=== PATIENT | female | born 1990 | race Caucasian/White ===

== ENCOUNTER 2017-04-18 04:20 | Inpatient (IN) | payer BC ==
[2017-04-18] MEDS ORDERED: TYLENOL EXTRA STRENGTH 500 MG PO PRN ×2 (04:28→08:26)
[2017-04-18] MEDS ORDERED: XYLOCAINE 1% HCL 20 ML MDV IJ PRN (04:28)
[2017-04-18] MEDS ORDERED: Zofran 4 MG/2 ML VIAL IV PRN (04:28)
[2017-04-18] MEDS ORDERED: Lactated Ringers 1,000 ML IV SCH (04:30)
[2017-04-18] MEDS ORDERED: PITOCIN 30 UNITS/ LR 500 ML 500 ML IV SCH (04:30)
[2017-04-18] MEDS ORDERED: OMNIPEN 2 GM / NACL 100ML 100 ML IV ONE (04:37)
[2017-04-18 05:04] LABS: Amphetamine,Urine NEG. (NEGATIVE); Barbiturate,Urine NEG. (NEGATIVE); Benzodiazepine,Urine NEG. (NEGATIVE); Cocaine,Urine NEG. (NEGATIVE); Methadone,Urine NEG. (NEGATIVE); Opiate,Urine NEG. (NEGATIVE); PCP,Urine NEG. (NEGATIVE); THC,Urine NEG. (NEGATIVE)
[2017-04-18 05:27] LABS: BASOPHIL % 0.1 % (0.0-0.4); Basophil (Absolute #) 0.01 (0-0.4); Eosinophil % 0.4 % (0.00-5.0); Eosinophil (Absolute #) 0.06 (0-0.5); Granulocyte Absolute (ANC) 10.57 (1.4-6.9); Granulocytes % 77.3 % (36.0-66.0); Hematocrit 42.6 % (35-47); Hemoglobin 14.5 gm/dl (12.0-16.0); Lymphocyte (Absolute #) 2.12 (1.0-4.6); Lymphocytes % 15.5 % (24.0-44.0); Mean Cell Volume 95.7 fl (78-100); Mean Corpuscular Hemoglobin 32.6 pg (26-32); Mean Platelet Volume 11.1 fl (6-9.5); Monocyte (Absolute #) 0.92 (0.0-1.3); Monocytes % 6.7 % (0.0-12.0); Platelet Count 206 K/mm3 (150-450); Red Blood Count 4.45 M/mm3 (4.1-5.4); Red Cell Distribution Width 14.9 % (11.5-14.0); White Blood Count 13.7 K/mm3 (4.0-10.5)
[2017-04-18] MEDS ORDERED: STADOL 2 MG ONE (05:28)
[2017-04-18] MEDS ORDERED: STADOL 2 MG IV ONE (05:29)
[2017-04-18] MEDS ORDERED: Lactated Ringers 1,000 ML IV ONE (06:22)
[2017-04-18] MEDS ORDERED: CORTISONE 1% CREAM TP PRN (08:26)
[2017-04-18] MEDS ORDERED: MOTRIN 400 MG PO PRN (08:26)
[2017-04-18] MEDS ORDERED: LANSINOH 40 GM TOP PRN (08:26)
[2017-04-18] MEDS ORDERED: Dulcolax 10 MG SUPP PR PRN (08:26)
[2017-04-18] MEDS ORDERED: Anucort-HC SUPPOSITORY PR PRN (08:26)
[2017-04-18] MEDS ORDERED: Mylicon 80MG PO PRN (08:26)
[2017-04-18] MEDS ORDERED: NORCO 5/325 MG PO PRN (08:26)
[2017-04-18] MEDS ORDERED: OMNIPEN 1GM / NaCl 100ML 100 ML IV SCH (08:38)
[2017-04-18] MEDS ORDERED: Dermoplast Spray TP PRN (09:00)
[2017-04-18] MEDS: Colace 100 MG PO SCH ×2 (09:29→21:35)
[2017-04-18] MEDS: FERREX 150 PO SCH (09:29)
[2017-04-19 07:00] LABS: BASOPHIL % 0.2 % (0.0-0.4); Basophil (Absolute #) 0.02 (0-0.4); Eosinophil % 1.3 % (0.00-5.0); Eosinophil (Absolute #) 0.13 (0-0.5); Granulocyte Absolute (ANC) 7.37 (1.4-6.9); Granulocytes % 71.1 % (36.0-66.0); Hematocrit 34.8 % (35-47); Hemoglobin 11.5 gm/dl (12.0-16.0); Lymphocyte (Absolute #) 2.18 (1.0-4.6); Mean Cell Volume 99.1 fl (78-100); Mean Platelet Volume 11.5 fl (6-9.5); Monocyte (Absolute #) 0.66 (0.0-1.3); Monocytes % 6.4 % (0.0-12.0); Platelet Count 173 K/mm3 (150-450); Red Blood Count 3.51 M/mm3 (4.1-5.4); Red Cell Distribution Width 15.1 % (11.5-14.0); White Blood Count 10.4 K/mm3 (4.0-10.5)
[2017-04-19 07:10] LABS: Mean Corpuscular Hemoglobin 32.7 pg (26-32)
[2017-04-19] MEDS: FERREX 150 PO SCH ×2 (09:49→10:04)
[2017-04-19] MEDS: Colace 100 MG PO SCH ×2 (10:06→21:25)
[2017-04-20 08:18] VITALS: BP 122/76; PULSE 71
--- NOTE | 2017-04-20 10:12 | PCM.DS ---
Discharge Summary Date of Admission: 04/18/17 04:20 Admitting Physician: SOY SIMONS Primary Care Provider: SOY SIMONS Allergies Allergies No Known Drug Allergies Allergy (Verified 04/18/17 09:17) Hospital Summary - Hospital Course Hospital Course: Pt of Dr. Simons, at term came in and delivered viable baby girl precipitously but without complication. She has had very little pain and in fact took motrin x 1 and no other pain meds during her stay. Her bleeding is minimal and she is ready to d/c home. - Vitals & Intake/Output Vital Signs: Vital Signs Temperature 97.5 F 04/20/17 08:00 Pulse Rate 71 04/20/17 08:00 Respiratory Rate 16 04/20/17 08:00 Blood Pressure 122/76 04/20/17 08:00 O2 Sat by Pulse Oximetry Intake & Output: Intake & Output 04/17/17 04/18/17 04/19/17 04/20/17 11:59 11:59 11:59 11:59 Intake Total 100 1570 1850 Balance 100 1570 1850 Weight 92.533 kg - Lab Result Diagrams: 04/19/17 05:15 Discharge Exam General Appearance: no apparent distress, alert Neurologic Exam: oriented x 3, cooperative Skin Exam: normal color, warm, dry, No rash Neck Exam: normal inspection, non-tender, No lymphadenopathy Respiratory Exam: normal breath sounds, lungs clear, No crackles/rales, No rhonchi, No wheezing Cardiovascular Exam: regular rate/rhythm, normal heart sounds, No murmur Gastrointestinal/Abdomen Exam: soft, other (fundus firm under umbilicus) Extremity Exam: normal inspection, No pedal edema, No swelling Final Diagnosis/Problem List - Final Discharge Diagnosis/Problem (1) Vaginal delivery Current Visit: Yes Status: Acute Assessment & Plan: Doing great, PPD #2, home today on motrin OTC prn. (2) Anemia Current Visit: Yes Status: Acute Assessment & Plan: Hgb 11.5, continue , no need for supplementation. - Discharge Disposition: Home, Self-Care Condition: Good Prescriptions: No Action No Reportable Medications [No Reported Medications] Follow up with: SOY SIMONS MD [Primary Care Provider] - 1 Week Forms: OB Discharge Instructions
== END 2017-04-20 11:05 | disposition home or self-care (01) | DRG 775 ==
LOC: OB 04:20 → OBSVTOIN 04:20
PROVIDERS: ADMIT Family Medicine; ATTEND Family Medicine
PROC: 10E0XZZ Delivery of Products of Conception, External Approach (ICD-10-PCS; principal; 2017-04-18)
DX: O80 Encounter for full-term uncomplicated delivery (principal); Z3A.40 40 weeks gestation of pregnancy; Z37.0 Single live birth; D64.9 Anemia, unspecified
CPT/HCPCS: 36415; 80307; 85025; G0378; J0290; J0595; J2590; A9270-GY

== ENCOUNTER 2020-12-06 03:08 | Emergency (ER) | payer BC ==
[2020-12-06 03:48] VITALS: O2SAT 99
--- NOTE | 2020-12-06 04:41 | ERPHSYRPT ---
- History of Present Illness Time Seen by Provider: 12/06/20 03:50 Source: patient Exam Limitations: no limitations Patient Subjective Stated Complaint: pt states she was stung by something on her lt index finger and has been having sharp shooting pain since Triage Nursing Assessment: pt alert and oriented, answers questions approp. pt ambulatory with steady gait noted. respirations nonlabored. skin warm and dry. redness and mild swelling noted to 43th digit lt hand. cap refill wnl. radial pulse wnl. Physician History: Patient is a 30-year-old female presents to our ED with complaints of pain to the left ring finger. Patient states she was stung or bitten by an insect at approximately 845 this evening. Since then patient has been experiencing a shooting pain up her finger. During my evaluation patient states that her pain spontaneously resolved. Patient had been sitting in the treatment room with a cold pack. Patient currently has no significant discomfort. This was patient's only complaint. The involved finger is neurovascular intact distally. There is slight redness to the area however no stinger is observed. Symptoms are mild in intensity. Patient voices no other complaints concerns at this time. Timing/Duration: today Severity: mild Associated Symptoms: denies symptoms Allergies/Adverse Reactions: No Known Drug Allergies Allergy (Verified 12/06/20 03:48) Home Medications: No Reportable Medications [No Reported Medications] 04/18/17 [History] Hx Tetanus, Diphtheria Vaccination/Date Given: Yes (2014) Hx Influenza Vaccination/Date Given: No Hx Pneumococcal Vaccination/Date Given: No Immunizations Up to Date: Yes Travel Risk - International Travel Have you traveled outside of the country in past 3 weeks: No - Coronavirus Screening Are you exhibiting any of the following symptoms?: No Close contact with a COVID-19 positive Pt in past 14-21 Days: No - Vaccine Status Have you recieved a Covid-19 vaccination: No - Review of Systems Constitutional: No Symptoms, No Fever, No Chills Eyes: No Symptoms Ears, Nose, & Throat: No Symptoms Respiratory: No Symptoms, No Cough, No Dyspnea Cardiac: No Symptoms, No Chest Pain, No Edema, No Syncope Abdominal/Gastrointestinal: No Symptoms, No Abdominal Pain, No Nausea, No Vomiting, No Diarrhea Genitourinary Symptoms: No Symptoms, No Dysuria Musculoskeletal: No Symptoms, No Back Pain, No Neck Pain Skin: No Symptoms, No Rash Neurological: No Symptoms, No Dizziness, No Focal Weakness, No Sensory Changes Psychological: No Symptoms Endocrine: No Symptoms Hematologic/Lymphatic: No Symptoms Immunological/Allergic: No Symptoms All Other Systems: Reviewed and Negative - Past Medical History Pertinent Past Medical History: No Neurological History: No Pertinent History ENT History: No Pertinent History Cardiac History: No Pertinent History Respiratory History: No Pertinent History Endocrine Medical History: No Pertinent History Musculoskeletal History: No Pertinent History GI Medical History: No Pertinent History History: No Pertinent History Psycho-Social History: No Pertinent History Female Reproductive Disorders: No Pertinent History - Past Surgical History Past Surgical History: No Neuro Surgical History: No Pertinent History Cardiac: No Pertinent History Respiratory: No Pertinent History Gastrointestinal: No Pertinent History Genitourinary: No Pertinent History Musculoskeletal: No Pertinent History Female Surgical History: No Pertinent History - Social History Smoking Status: Never smoker Exposure to second hand smoke: No Drug Use: none Patient Lives Alone: No - Female History Hx Last Menstrual Period: current Hx Now: No - Nursing Vital Signs Nursing Vital Signs: Initial Vital Signs Temperature 97.7 F 12/06/20 03:35 Pulse Rate 79 12/06/20 03:35 Respiratory Rate 16 12/06/20 03:35 Blood Pressure 147/89 12/06/20 03:35 O2 Sat by Pulse Oximetry 99 12/06/20 03:35 Pain Scale Pain Intensity 5 - Physical Exam General Appearance: no apparent distress, alert Eye Exam: PERRL/EOMI, eyes nml inspection Ears, Nose, Throat Exam: normal ENT inspection, TMs normal, pharynx normal, moist mucous membranes Neck Exam: normal inspection, non-tender, supple, full range of motion Respiratory Exam: normal breath sounds, lungs clear, airway intact, No respiratory distress Cardiovascular Exam: regular rate/rhythm, normal heart sounds, normal peripheral pulses Gastrointestinal/Abdomen Exam: soft, normal bowel sounds, No tenderness, No mass Back Exam: normal inspection, normal range of motion, No CVA tenderness, No vertebral tenderness Extremity Exam: normal inspection, normal range of motion, pelvis stable, other (The proximal phalanx of the left ringfinger. Finger and extremity neurovascular intact distally. Compartments are soft. Cap refill less than 2 seconds.), No swelling (No retained stinger. No cellulitis. No lymphangitis. No open or draining lesions.) Neurologic Exam: alert, oriented x 3, cooperative, normal mood/affect, nml cerebellar function, nml station & gait, sensation nml, No motor deficits Skin Exam: normal color, warm, dry, No rash Lymphatic Exam: No adenopathy SpO2 Interpretation: normal SpO2: 99 O2 Delivery: Room Air - Course Nursing assessment & vital signs reviewed: Yes - Progress Progress: improved Progress Note: While in our ED patient's pain resolved. Patient has minimal discomfort at this time. She declined pain medication. Patient states she is ready for discharge. The finger is neurovascular intact distally. The site of the insect sting/bite appears unremarkable. Will discharge at this time. Patient agrees to follow-up with her primary care doctor within 48 hours for reevaluation. 12/06/20 04:51 Counseled pt/family regarding: diagnosis, need for follow-up - Departure Departure Disposition: Home Clinical Impression: Insect sting, Finger pain, left Condition: Stable Critical Care Time: No Referrals: SOY SIMONS MD [Primary Care Provider] - Instructions: Insect Bites and Stings (DC) Additional Instructions: Discharge/Care Plan ROSEMARY FOWLER was seen on 12/06/20 in the Emergency Room. The patient was counseled regarding Diagnosis,Lab results, Imaging studies, need for follow up and when to return to the Emergency Room. Prescriptions given: Discharge Note I have spoken with the patient and/or caregivers. I have explained the patient's condition, diagnosis and treatment plan based on the information available to me at this time. I have answered the patient's and/or caregiver's questions and addressed any concerns. The patient and/or caregivers have as good understanding of the patient's diagnosis, condition and treatment plan as can be expected at this point. The vital signs have been stable. The patient's condition is stable and appropriate for discharge from the emergency department. The patient will pursue further outpatient evaluation with the primary care physician or other designated or consulting physician as outlined in the discharge instructions. The patient and/or caregivers are agreeable to this plan of care and follow-up instructions have been explained in detail. The patient and/or caregivers have received these instruction. The patient/and or caregivers are aware that any significant change in condition or worsening of symptoms should prompt an immediate return to this or the closest emergency department or call 911.
[2020-12-06 04:47] VITALS: BP 129/91; PULSE 87
== END 2020-12-06 04:52 | disposition home or self-care (01) ==
LOC: ED 03:08
DX: T63.481A Toxic effect of venom of other arthropod, accidental (unintentional), initial encounter (principal); M79.645 Pain in left finger(s); M79.89 Other specified soft tissue disorders
CPT/HCPCS: 99283

== ENCOUNTER 2025-02-28 14:27 | Emergency (ER) | payer BC ==
[2025-02-28 14:48] VITALS: RESP 18; TEMP 97
[2025-02-28] MEDS ORDERED: Cyclobenzaprine 10 MG ONE (15:09)
[2025-02-28] MEDS ORDERED: PERCOCET TABLET 5/325MG ONE (15:09)
[2025-02-28] MEDS: PERCOCET TABLET 5/325MG PO STA (15:10)
[2025-02-28] MEDS: Cyclobenzaprine 10 MG PO ONE (15:10)
--- NOTE | 2025-02-28 15:39 | ERPHSYRPT ---
- History of Present Illness Time Seen by Provider: 02/28/25 14:53 Source: patient Exam Limitations: no limitations Patient Subjective Stated Complaint: Pt states "I was up on a 6 foot tall ladder and on the second to top rung and the ladder pushed away from me and I fell hitting the ladder and concrete." Triage Nursing Assessment: Pt presented alert and oriented x 3, skin pwd. Pt ambulates with a slow gait, physical assessment revealed right lateral back abrasion/bruising and tenderness, right shoulder lower than left, right wrist tenderness and painful to move, no other injuries or pain noted. no LOC, no blood thinner use. Physician History: 34-year-old female presents to the emergency status post fall off a ladder patient is complaining right shoulder pain right elbow pain right arm pain and right rib pain now in ED for further eval denies taking any medications prior to arrival Occurred: just prior to arrival Reason for Fall: lost balance, tripped, fell from height Injuries/Pain Location: upper extremity Loss of Consciousness: no loss of consciousness Quality: aching Severity of Pain-Max: mild Severity of Pain-Current: mild Modifying Factors: Improves With: nothing Allergies/Adverse Reactions: No Known Drug Allergies Allergy (Verified 12/06/20 03:48) Hx Tetanus, Diphtheria Vaccination/Date Given: No Hx Influenza Vaccination/Date Given: No Hx Pneumococcal Vaccination/Date Given: No Travel Risk - International Travel Have you traveled outside of the country in past 3 weeks: No - Emerging Infectious Disease Are you exhibiting symptoms associated with any current EIDs: No - Review of Systems Constitutional: No Fever, No Chills Eyes: No Symptoms Ears, Nose, & Throat: No Symptoms Respiratory: No Cough, No Dyspnea Cardiac: No Chest Pain, No Edema, No Syncope Abdominal/Gastrointestinal: No Abdominal Pain, No Nausea, No Vomiting, No Diarrhea Genitourinary Symptoms: No Dysuria Musculoskeletal: Fall, Joint Pain, Joint Swelling, No Back Pain, No Neck Pain Skin: No Rash Neurological: No Dizziness, No Focal Weakness, No Sensory Changes Psychological: No Symptoms Endocrine: No Symptoms All Other Systems: Reviewed and Negative - Past Medical History Pertinent Past Medical History: No Neurological History: No Pertinent History ENT History: No Pertinent History Cardiac History: No Pertinent History Respiratory History: No Pertinent History Endocrine Medical History: No Pertinent History Musculoskeletal History: No Pertinent History GI Medical History: No Pertinent History History: No Pertinent History Psycho-Social History: No Pertinent History Female Reproductive Disorders: No Pertinent History - Past Surgical History Past Surgical History: No Neuro Surgical History: No Pertinent History Cardiac: No Pertinent History Respiratory: No Pertinent History Gastrointestinal: No Pertinent History Genitourinary: No Pertinent History Musculoskeletal: No Pertinent History Female Surgical History: No Pertinent History - Female History Hx Last Menstrual Period: 02/12/2025 Hx Now: No - Social History Smoking Status: Never smoker Exposure to second hand smoke: No Drug Use: none - Social Determinants of Health Will the patient participate in the screening: Declined to provide - Nursing Vital Signs Nursing Vital Signs: Initial Vital Signs Temperature 97.0 F 02/28/25 14:42 Pulse Rate 74 02/28/25 14:42 Respiratory Rate 18 02/28/25 14:42 Blood Pressure 142/93 02/28/25 14:42 O2 Sat by Pulse Oximetry 98 02/28/25 14:42 Pain Scale Pain Intensity 0 - Terry Coma Score Best Eye Response ([place]): (4) open spontaneously Best Verbal Response ([place]): (5) oriented Best Motor Response ([place]): (6) obeys commands Terry Total: 15 - Physical Exam General Appearance: no apparent distress, alert Head Injury: no evidence of injury Eye Exam: PERRL/EOMI ENT Exam: airway nml Neck Exam: normal inspection, No tenderness Respiratory/Chest Exam: normal breath sounds, No chest tenderness, No respiratory distress Cardiovascular Exam: normal heart sounds, regular rate/rhythm Gastrointestinal Exam: soft, No tenderness, No distention, No guarding, No ecchymosis Back Exam: normal inspection, No vertebral tenderness Extremity Exam: pelvis stable, contusions, limited range of motion, pain with movement (right forearm right shoulder), No deformities Neurologic Exam: alert, oriented x 3, cooperative, sensation nml, No motor deficits Skin Exam: normal color, warm, dry SpO2: 99 - Course Nursing assessment & vital signs reviewed: Yes Ordered Tests: Active Orders 24 hr Category Date Time Status Sling Application STAT Care 02/28/25 14:59 Active CERVICAL SPINE WO CONTRAST [CT] Stat Exams 02/28/25 15:00 Completed CHEST WITHOUT CONTRAST [CT] Stat Exams 02/28/25 15:00 Completed ELBOW (MINIMUM 3 VIEWS) Stat Exams 02/28/25 15:01 Completed FOREARM Stat Exams 02/28/25 15:01 Completed HAND (MINIMUM 3 VIEWS) Stat Exams 02/28/25 15:01 Completed HEAD WITHOUT CONTRAST [CT] Stat Exams 02/28/25 15:00 Completed SHOULDER Stat Exams 02/28/25 15:01 Completed Medication Summary Discontinued Medications Generic Name Dose Route Start Last Admin Trade Name Kate PRN Reason Stop Dose Admin Cyclobenzaprine HCl 10 mg 02/28/25 14:59 02/28/25 15:10 Cyclobenzaprine Hcl 10 Mg Tablet PO 02/28/25 15:00 10 mg STAT ONE Administration Cyclobenzaprine HCl Confirm 02/28/25 15:09 Cyclobenzaprine Hcl 10 Mg Tablet Administered 02/28/25 15:10 Dose 10 mg .ROUTE .STK-MED ONE Oxycodone/Acetaminophen 1 tab 02/28/25 14:59 02/28/25 15:10 Oxycodone Hcl/Apap 5 Mg/325 Mg Tablet PO 02/28/25 15:00 1 tab STAT STA Administration Oxycodone/Acetaminophen Confirm 02/28/25 15:09 Oxycodone Hcl/Apap 5 Mg/325 Mg Tablet Administered 02/28/25 15:10 Dose 1 tab .ROUTE .STK-MED ONE - Progress Progress Note: 02/28/25 16:31 Thank no bony articular or soft tissue abnormality of the right shoulder Right elbow shows no bony articular or soft tissue abnormalities 02/28/25 16:38 Hand x-ray shows normal bones articulation and soft tissue forearm x-ray shows normal bony articulation and soft tissue 02/28/25 16:52 Comparison: None Normal appearing brain parenchyma, ventricles, and bony calvarium. Visualized paranasal sinuses and mastoid air cells are clear. Impression: Normal CT head without contrast exam. 02/28/25 16:56 Impression: 1. Negative acute fracture/subluxation. 2. Lordotic straightening, positional versus paraspinal spasm. 3. Incidental C4-C7 degenerative disc disease. 02/28/25 17:05 Nondisplaced fracture inferior tip right scapula incidental cholelithiasis and hepatic cyst remaining CT chest without contrast normal - Departure Clinical Impression: Fall from ladder Qualifiers: Encounter type: initial encounter Qualified Code(s): W11.XXXA - Fall on and from ladder, initial encounter Degenerative joint disease Qualifiers: Osteoarthritis location: unspecified site Osteoarthritis type: unspecified Qualified Code(s): M19.90 - Unspecified osteoarthritis, unspecified site Arm contusion Qualifiers: Encounter type: initial encounter Laterality: unspecified laterality Qualified Code(s): S40.029A - Contusion of unspecified upper arm, initial encounter Scapular fracture Qualifiers: Encounter type: initial encounter Scapula location: unspecified part of scapula Fracture type: closed Laterality: right Qualified Code(s): S42.101A - Fracture of unspecified part of scapula, right shoulder, initial encounter for closed fracture Condition: Stable Critical Care Time: No Referrals: SOY SIMONS MD [Primary Care Provider, [facility]] - Follow up/PCP as directed SURYA QURESHI MD [ACTIVE STAFF, ORTHOPEDICS] - Follow up/PCP as directed Instructions: Contusion (DC), Preventing falls in adults, Shoulder or upper arm fracture Additional Instructions: You have a scapular fracture which is nondisplaced require sling immobilization pain control with Tylenol or NSAIDs ice 20 minutes several times a day avoid heavy lifting pushing or overhead motions follow-up with Ortho Prescriptions: Cyclobenzaprine HCl 10 mg [Cyclobenzaprine 10 MG] 10 mg PO HS #7 tablet
--- NOTE | 2025-02-28 16:29 | XRAY ---
Indication: Pain following fall from ladder. Comparison: None 3 view right shoulder obtained. No bony, articular, or soft tissue abnormalities.
--- NOTE | 2025-02-28 16:29 | XRAY ---
Indication: Pain following fall from ladder. Comparison: None 3 view right elbow obtained. No bony, articular, or soft tissue abnormalities.
--- NOTE | 2025-02-28 16:32 | XRAY ---
Indication: Pain following fall from ladder. Comparison: None 3 view right hand demonstrates normal bones, articulation, and soft tissues.
--- NOTE | 2025-02-28 16:32 | XRAY ---
Indication: Pain following fall from ladder. Comparison: None 2 view right forearm demonstrates normal bones, articulation, and soft tissues.
--- NOTE | 2025-02-28 16:44 | XRAY ---
Indication: Fall from ladder. Multiple contiguous axial images obtained through the head without contrast. Comparison: None Normal appearing brain parenchyma, ventricles, and bony calvarium. Visualized paranasal sinuses and mastoid air cells are clear. Impression: Normal CT head without contrast exam.
--- NOTE | 2025-02-28 16:54 | XRAY ---
Indication: Fall from ladder. Multiple contiguous axial images obtained through the cervical spine. Sagittal and coronal reformatted images obtained. Comparison: None Axial images negative for acute fracture. There is mild/moderate C4-C7 degenerative endplate spurring and tiny C7 subcortical cysts. Facets are symmetric. Sagittal and coronal reformatted images demonstrates lordotic straightening, positional versus paraspinal spasm. C5-C7 disc space narrowing. No acute compression fracture, subluxation, or jumped facet. Normal appearing craniocervical junction. Visualized noncontrasted soft tissues including lung apices are unremarkable. Impression: 1. Negative acute fracture/subluxation. 2. Lordotic straightening, positional versus paraspinal spasm. 3. Incidental C4-C7 degenerative disc disease.
--- NOTE | 2025-02-28 17:04 | XRAY ---
Indication: Fall from ladder. Multiple contiguous axial images obtained through the chest without contrast. Comparison: None Minimal bilateral dependent atelectasis and nondisplaced fracture inferior tip right scapula. Otherwise normal heart, lungs, and bony thorax. Limited upper abdomen demonstrates 5 mm hepatic cyst and a few tiny gallstones, largest 7 mm. Impression: Nondisplaced fracture inferior tip right scapula. Incidental cholelithiasis and hepatic cyst. Remaining CT chest without contrast normal.
[2025-02-28] MEDS ORDERED: NORCO 5/325 MG ONE (17:12)
[2025-02-28] MEDS: NORCO 5/325 MG PO ONE (17:17)
[2025-02-28 17:23] VITALS: BP 140/85; PULSE 69; O2SAT 97
== END 2025-02-28 17:35 | disposition home or self-care (01) ==
LOC: ED 14:27
DX: S42.191A Fracture of other part of scapula, right shoulder, initial encounter for closed fracture (principal); S40.021A Contusion of right upper arm, initial encounter; W11.XXXA Fall on and from ladder, initial encounter; M19.90 Unspecified osteoarthritis, unspecified site; M25.511 Pain in right shoulder; M25.521 Pain in right elbow; R07.89 Other chest pain; Z79.899 Other long term (current) drug therapy